=== PATIENT | female | born 1985 | race Caucasian/White ===

== ENCOUNTER 2016-11-13 21:45 | Emergency (ER) | payer SELFPAY ==
[2016-11-13 22:28] VITALS: BP 106/65
[2016-11-13] MEDS ORDERED: MOTRIN PO ONE (22:29)
[2016-11-13 23:31] LABS: Alanine Aminotransferase 19 units/L (7-56); Albumin 3.5 g/dL (3.9-5); Albumin/Globulin Ratio 1.2 %; Alkaline Phosphatase 79 units/L (35-129); Anion Gap 17 mmol/L; BUN/Creatinine Ratio 13.33; Bilirubin,Total 0.5 mg/dL (0.1-1.2); Blood Urea Nitrogen 8 mg/dL (7-17); Calcium 8.7 mg/dL (8.4-10.2); Carbon Dioxide 24 mmol/L (22-30); Chloride 99.3 mmol/L (98-107); Glucose 109 mg/dL (65-100); Lipase 21 units/L (13-60); Potassium 4.1 mmol/L (3.6-5.0); Sodium 136 mmol/L (137-145); Total Protein 6.5 g/dL (6.3-8.2)
[2016-11-13 23:33] LABS: Basophils % (Auto) 0.2 % (0.0-1.8); Eosinophils % (Auto) 0.4 % (0.0-4.3); Hematocrit 38.1 % (30.3-42.9); Hemoglobin 12.8 gm/dl (10.1-14.3); Mean Corpuscular HGB Conc 34 % (30-34); Mean Corpuscular Hemoglobin 31 pg (28-32); Mean Corpuscular Volume 91 fl (79-97); Platelet Count 204 K/mm3 (140-440); Red Blood Count 4.16 M/mm3 (3.65-5.03); Red Cell Distribution Width 13.2 % (13.2-15.2); White Blood Count 9.9 K/mm3 (4.5-11.0)
[2016-11-14 01:11] LABS: Bacteria,Urine 1+ /HPF (Negative); Bilirubin,Urine NEG (Negative); Blood,Urine SM (Negative); Ketones,Urine NEG (Negative); Leukocyte Esterase,Urine TR (Negative); Mucus,Urine FEW /HPF; Nitrite,Urine POS (Negative); Protein,Urine <15 mg/dL mg/dL (Negative); Urobilinogen,Urine < 2.0 mg/dL (<2.0)
== END 2016-11-14 03:59 | disposition left against medical advice (07) ==
LOC: ED 21:45
DX: R05 Cough (principal); R50.9 Fever, unspecified; R10.9 Unspecified abdominal pain; R07.81 Pleurodynia; R51 Headache; R11.0 Nausea; Z53.21 Procedure and treatment not carried out due to patient leaving prior to being seen by health care provider
CPT/HCPCS: 36415; 80053; 81001; 81025; 83690; 85025

== ENCOUNTER 2016-11-14 08:15 | Emergency (ER) | payer SELFPAY ==
[2016-11-14] MEDS ORDERED: TYLENOL PO ONE (08:40)
[2016-11-14] MEDS ORDERED: ROCEPHIN/NS 1 GM/50 ML 1 GM/50 ML BAG IV ONE (08:50)
[2016-11-14] MEDS ORDERED: TORADOL IV ONE (08:50)
[2016-11-14] MEDS ORDERED: NACL 0.9% 1000 ML 1,000 ML IV ONE (08:50)
--- NOTE | 2016-11-14 09:11 | Emergency Department Report ---
ED General Adult HPI - General Chief complaint: Upper Respiratory Infection Stated complaint: FEVER/PAIN Time Seen by Provider: 11/14/16 09:10 Source: patient Mode of arrival: Ambulatory Limitations: Language Barrier - History of Present Illness Initial comments: Patient here complaining in of cough and congestion and flulike symptoms cough is productive of yellow mucus 4 days. She says she has a fever she is also complaining or right lower back pain at her flank since Thursday hurts more when she breathes in. She says she has nausea without any vomiting. She says she has urinary burning and denies any frequency or blood in her urine. Last menstrual period was 11/05/2016. Patient to right flank is 10 out of 10 and aching. Her temperature yesterday was 102 today at 101.4. Given Tylenol in triage area. Denies any history of kidney stones. Patient says she does not have any medical problems. Patient was here yesterday and she had lab work done and her white count is normal urinalysis revealed that she has bacterial infection. MD Complaint: right flank pain and upper respiratory symptoms Onset/Timin -: days(s) Location: back, right Radiation: non-radiation Severity scale (0 -10): 10 Quality: aching Consistency: constant Improves with: rest Worsens with: movement Associated Symptoms: cough, fever/chills, nausea/vomiting. denies: confusion, chest pain, diaphoresis, headaches, loss of appetite, malaise, rash, seizure, shortness of breath, syncope, weakness Treatments Prior to Arrival: NSAID - Related Data Previous Rx's Medication Instructions Recorded Last Taken Type Cefuroxime Axetil [Ceftin] 500 mg PO Q12H #20 tablet 11/14/16 Unknown Rx HYDROcodone/APAP 5-325 [[place] 1 each PO Q6HR PRN #15 tablet 11/14/16 Unknown Rx 5/325] Promethazine [Phenergan TAB] 25 mg PO Q8HR PRN #12 tab 11/14/16 Unknown Rx Allergies Allergy/AdvReac Type Severity Reaction Status Date / Time No Known Allergies Allergy Verified 11/14/16 08:39 ED Review of Systems ROS: Stated complaint: FEVER/PAIN Other details as noted in HPI Comment: All other systems reviewed and negative Constitutional: chills, fever ENT: congestion. denies: ear pain, throat pain Respiratory: cough. denies: shortness of breath, SOB with exertion, SOB at rest , stridor, wheezing Cardiovascular: denies: chest pain, palpitations, edema, syncope Gastrointestinal: nausea. denies: abdominal pain, vomiting, diarrhea, constipation Genitourinary: dysuria. denies: urgency, frequency, hematuria, discharge Musculoskeletal: back pain. denies: arthralgia Skin: denies: rash Neurological: denies: headache, weakness, numbness, paresthesias, confusion, abnormal gait, vertigo ED Past Medical Hx - Past Medical History Previous Medical History?: No - Surgical History Past Surgical History?: Yes Additional Surgical History: x 1 - Family History Family history: no significant - Social History Smoking Status: Current Every Day Smoker Substance Use Type: None - Medications Home Medications: Home Medications Medication Instructions Recorded Confirmed Last Taken Type Cefuroxime Axetil [Ceftin] 500 mg PO Q12H #20 tablet 11/14/16 Unknown Rx HYDROcodone/APAP 5-325 [[place] 1 each PO Q6HR PRN #15 tablet 11/14/16 Unknown Rx 5/325] Promethazine [Phenergan TAB] 25 mg PO Q8HR PRN #12 tab 11/14/16 Unknown Rx ED Physical Exam - General Limitations: Language Barrier General appearance: alert, in no apparent distress - Head Head exam: Present: atraumatic, normocephalic, normal inspection - Eye Eye exam: Present: normal appearance, PERRL, EOMI. Absent: periorbital swelling , periorbital tenderness Pupils: Present: normal accommodation - ENT ENT exam: Present: normal orophraynx, mucous membranes moist, normal external ear exam, other ( Bilateral frontal and maxillary sinuses nontender to palpate. Bilateral nasal mucosa congested with erythema and clear drainage). Absent: normal exam, TM's normal bilaterally (bilateral TMs congested without any erythema) - Neck Neck exam: Present: normal inspection, full ROM. Absent: tenderness, meningismus, lymphadenopathy - Respiratory Respiratory exam: Present: rhonchi (rhonchi to upper lung awan), other ( patient has a congested cough.). Absent: respiratory distress, wheezes, rales, stridor, chest wall tenderness, accessory muscle use, decreased breath sounds, prolonged expiratory - Cardiovascular Cardiovascular Exam: Present: regular rate, normal rhythm, normal heart sounds - GI/Abdominal GI/Abdominal exam: Present: soft, normal bowel sounds. Absent: distended, tenderness, guarding, rebound, rigid - Extremities Exam Extremities exam: Present: normal inspection, full ROM, normal capillary refill. Absent: tenderness, pedal edema, joint swelling, calf tenderness - Back Exam Back exam: Present: normal inspection, full ROM, tenderness, CVA tenderness (R) . Absent: CVA tenderness (L), muscle spasm, paraspinal tenderness, vertebral tenderness, rash noted - Expanded Back Exam Expanded Back exam: Absent: saddle anesthesia Back exam: Negative Straight Leg Raising: Left, Right - Neurological Exam Neurological exam: Present: alert, oriented X3, normal gait, reflexes normal. Absent: motor sensory deficit - Psychiatric Psychiatric exam: Present: normal affect, normal mood - Skin Skin exam: Present: warm, dry, intact, normal color. Absent: rash ED Course Vital Signs 11/14/16 11/14/16 11/14/16 08:28 08:44 10:34 Temperature 101.4 F H 98.6 F Pulse Rate 98 H 82 Respiratory 20 20 16 Rate Blood Pressure 105/65 Blood Pressure 99/54 [Left] O2 Sat by Pulse 99 97 Oximetry - Reevaluation(s) Reevaluation #1: 11/14/16 11:25 Patient stable throughout ED course. She was given Zofran 4 mg IV, Toradol 30 mg IV and 1 L of IV fluid for pyelonephritis. Is also given Rocephin 1 g IV. She tolerated well without any adverse reaction. Patient had lab work done yesterday along with urinalysis in she could not stay still for she eloped. I then is elevated Reevaluation #2: 11/14/16 11:54 Urine cultures sent because urinalysis from yesterday also Urine collected and sent. Patient's vital signs normalized and she is tolerating oral liquids without any difficulties. ED Medical Decision Making - Lab Data Please see lab results from 11/13/2016. Patient with positive urinary tract infection. - Radiology Data Radiology results: report reviewed Chest x-ray revealed no acute cardiopulmonary processes. - Medical Decision Making Collaborated with Dr. hicks and patient presentation, clinical findings, lab findings and treatment plan. ED course: I discussed the patient that she has right kidney infection. Patient has nausea, fever and right flank pain. Her urinalysis from yesterday reveals that she has bacterial infection. Patient is not . White count is not elevated. Urine culture collected and sent today. Patient is stable at present she is given 1 L of normal saline in emergency room with Rocephin 1 g IV. Patient given 975 mg of Tylenol, 30 mg Toradol IV and 4 mg of Zofran IV. He tolerated by mouth liquids without any difficulties. Patient says she felt much better and her vital signs are normalized. Patient will be discharged home with prescription for Ceftin, Te[place]dale and phenergan. Patient instructed that she will need to follow-up with her primary care and 3 days and if she doesn't have one to follow-up with [facility]. Patient was understanding of discharge diagnosis and treatment plan. I instructed her if she develops fever that is not relieved with Tylenol, nausea and vomiting and that is not relieved with Phenergan and increase in flank pain does not removed for Teasdale that she will need to return to the emergency room. Critical care attestation.: If time is entered above; I have spent that time in minutes in the direct care of this critically ill patient, excluding procedure time. ED Disposition Clinical Impression: Pyelonephritis, Acute right flank pain, Fever in adult, Cough, Nausea alone Upper respiratory tract infection Qualifiers: URI type: unspecified URI Qualified Code(s): J06.9 - Acute upper respiratory infection, unspecified Disposition: DISCHARGED TO HOME OR SELFCARE Is pt being admited?: No Does the pt Need Aspirin: No Condition: Stable Instructions: Fever in Adults (ED), Upper Respiratory Infection (ED), Acute Pyelonephritis (ED), Acute Nausea and Vomiting (ED), Flank Pain (ED), Acute Cough (ED) Additional Instructions: Please increase her fluid intake to 2-3 L of fluid per day. Please do not drive or operate heavy machinery while taking [place] Please take nausea medication as prescribed and this medication can cause drowsiness so please do not drive or operate any heavy machinery. If you develop nausea and vomiting that is not relieved with Phenergan, increasing fever, weakness, increasing flank pain that is not relieved by pain medication please return to the emergency room. Follow-up with [facility] in 3 days call today to schedule an appointment. If you have a primary care physician [place] call to schedule an appointment. Prescriptions: Cefuroxime Axetil [Ceftin] 500 mg PO Q12H #20 tablet HYDROcodone/APAP 5-325 [[place] 5/325] 1 each PO Q6HR PRN #15 tablet PRN Reason: Pain Promethazine [Phenergan TAB] 25 mg PO Q8HR PRN #12 tab PRN Reason: Nausea Referrals: PRIMARY CARE, [Primary Care Provider] - 11/17/16 [facility] [Outside] - 11/17/16 Forms: Accompanied Note, Work/School Release Form(ED)
--- NOTE | 2016-11-14 09:14 | XRay Report ---
Chest 2 views: History: Shortness of breath, cough, fever. Findings: Normal cardiomediastinal silhouette the trachea is midline. No consolidation, pneumothorax or pleural effusion. Impression: No acute cardiopulmonary findings
[2016-11-14] MEDS ORDERED: ZOFRAN IV ONE (09:31)
[2016-11-14 10:35] VITALS: BP 99/54
== END 2016-11-14 12:38 | disposition home or self-care (01) ==
LOC: ED 08:15
DX: J06.9 Acute upper respiratory infection, unspecified (principal); N12 Tubulo-interstitial nephritis, not specified as acute or chronic; R10.9 Unspecified abdominal pain; R11.0 Nausea; F17.200 Nicotine dependence, unspecified, uncomplicated
CPT/HCPCS: 71020; 87086; 96365; 96375; 99283; J0696; J1885; J2405; J7030

== ENCOUNTER 2017-10-09 18:25 | Outpatient (CLI) | payer OTHER ==
[2017-10-09 18:44] VITALS: BP 116/60
[2017-10-09] MEDS ORDERED: LACTATED RINGERS 1,000 ML ONE (19:29)
[2017-10-09] MEDS ORDERED: LACTATED RINGERS 1,000 ML IV SCH (20:00)
[2017-10-09 20:03] LABS: Hemoglobin 12.3 gm/dl (10.1-14.3); Mean Corpuscular HGB Conc 33 % (30-34); Mean Corpuscular Hemoglobin 29 pg (28-32); Mean Corpuscular Volume 87 fl (79-97); Platelet Count 212 K/mm3 (140-440); Red Blood Count 4.24 M/mm3 (3.65-5.03); Red Cell Distribution Width 16.1 % (13.2-15.2)
[2017-10-09 20:15] LABS: Bacteria,Urine 3+ /HPF (Negative); Bilirubin,Urine NEG (Negative); Blood,Urine NEG (Negative); Color,Urine Yellow (Yellow); Mucus,Urine FEW /HPF; Nitrite,Urine POS (Negative); Protein,Urine <15 mg/dL mg/dL (Negative); Urobilinogen,Urine < 2.0 mg/dL (<2.0)
== END 2017-10-09 21:50 | disposition home or self-care (01) ==
LOC: TRG 18:25
PROVIDERS: ATTEND Obstetrics & Gynecology
DX: O47.1 False labor at or after 37 completed weeks of gestation (principal); Z3A.38 38 weeks gestation of pregnancy
CPT/HCPCS: 36415; 59025; 81001; 85027; 96360; J7120

== ENCOUNTER 2017-10-19 08:43 | Inpatient (IN) | payer OTHER ==
[2017-10-19] MEDS ORDERED: BICITRA PO NR (09:56)
[2017-10-19] MEDS ORDERED: REGLAN IV ONE (09:56)
[2017-10-19] MEDS ORDERED: PEPCID IV ONE (09:56)
[2017-10-19] MEDS ORDERED: PITOCin/NS 20 UNIT/1000ML DRIP 20 UNITS/1,000 ML BAG IV SCH ×2 (10:00→15:00)
[2017-10-19] MEDS ORDERED: ANCEF/STERILE WATER 2 GM/20 ML 2 GM/20 ML SYRINGE IV NR (10:00)
[2017-10-19] MEDS ORDERED: LACTATED RINGERS 1,000 ML IV SCH (10:00)
--- NOTE | 2017-10-19 10:02 | History and Physical Report ---
History of Present Illness Date of examination: 10/19/17 Date of admission: 10/19/17 08:43 Chief complaint: SIUP at 39 weeks not in labor, previous C/section. History of present illness: Patient is a 32 year old , LMP , EDC 10/26/17 confirmed by first trimester sonogram who is at 39 weeks gestation admitted for elective repeat C/section. She denies any contraction, fluid leakage or bleeding. She reports good movement. tracing is CAT 1. 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 uterus) Social history: no significant social history - Obstetrical History Expected Date of Delivery: 10/26/17 Actual Gestation: 39 Week(s) 0 Day(s) : 2 Para: 1 Spontaneous Abortions: 2 Number of Living Children: 1 Medications and Allergies Allergies Allergy/AdvReac Type Severity Reaction Status Date / Time No Known Allergies Allergy Verified 11/14/16 08:39 Home Medications Medication Instructions Recorded Confirmed Last Taken Type Cefuroxime Axetil [Ceftin] 500 mg PO Q12H #20 tablet 11/14/16 Unknown Rx HYDROcodone/APAP 5-325 [[place] 1 each PO Q6HR PRN #15 tablet 11/14/16 Unknown Rx 5/325] Promethazine [Phenergan TAB] 25 mg PO Q8HR PRN #12 tab 11/14/16 Unknown Rx Active Meds: Active Medications Influenza Virus Vaccine Quadrival (Fluarix Quad [id number](36 Mos+) 0.5 ml IM .ONCE ONE Stop: 10/19/17 09:52 - Vital Signs Vital signs: Vital Signs Pulse BP 83 97/61 10/19/17 09:11 10/19/17 09:11 Temp Pulse Resp BP Pulse Ox 97.2 F L 83 16 97/61 10/19/17 09:18 10/19/17 09:18 10/19/17 09:18 10/19/17 09:18 - Physical Exam Cardiovascular: Normal S1, Normal S2 Lungs: Positive: Clear to auscultation Vulva: both: normal Adnexa: both: normal Deep Tendon Reflex Grade: Normal +2 - Obstetrical FHR: category 1 Uterine Contraction Monitor Mode: External Cervical Dilatation: 1 Cervical Effacement Percentage: 20 station: -2 Uterine Contraction Pattern: Absent Results All other labs normal. Assessment and Plan - Patient Problems (1) 39 weeks gestation of Current Visit: Yes Status: Acute (2) Previous section Current Visit: Yes Status: Acute Plan to address problem: Admit to labor floor. Routine labs. NPO. IV fluid. monitoring. Risks, benefits of the procedure were discussed in detail with the patient such as infection, hemorrhage requiring blood transfusion, injury to the bowel, bladder and blood vessels. She expressed understanding, her questions were answered, she gave her informed consent. Anesthesia has been notified. (3) Declines (vaginal after ) trial Current Visit: Yes Status: Acute
[2017-10-19 10:15] LABS: Basophils % (Auto) 0.5 % (0.0-1.8); Eosinophils # (Auto) 0.1 K/mm3 (0.0-0.4); Eosinophils % (Auto) 0.9 % (0.0-4.3); Hematocrit 36.1 % (30.3-42.9); Hemoglobin 12.1 gm/dl (10.1-14.3); Lymphocytes # (Auto) 1.5 K/mm3 (1.2-5.4); Lymphocytes % (Auto) 18.7 % (13.4-35.0); Mean Corpuscular HGB Conc 34 % (30-34); Mean Corpuscular Hemoglobin 29 pg (28-32); Mean Corpuscular Volume 87 fl (79-97); Monocytes # (Auto) 0.4 K/mm3 (0.0-0.8); Monocytes % (Auto) 5.6 % (0.0-7.3); Platelet Count 222 K/mm3 (140-440); Red Blood Count 4.17 M/mm3 (3.65-5.03); Red Cell Distribution Width 16.2 % (13.2-15.2)
[2017-10-19] MEDS ORDERED: HEMABATE IM ONE (12:28)
[2017-10-19] MEDS ORDERED: METHERGINE IM ONE (12:28)
[2017-10-19] MEDS ORDERED: NEO SYNEPHRINE/NS Syringe(OR USE) IV ONE (13:08)
[2017-10-19] MEDS ORDERED: ZOFRAN ONE (13:12)
[2017-10-19] MEDS ORDERED: NACL 0.9% IR ONE (13:16)
[2017-10-19] MEDS ORDERED: WATER FOR IRRIG STERILE IR ONE (13:16)
--- NOTE | 2017-10-19 13:19 | Anesthesia Consultation ---
Anesthesia Consult and Med Hx Date of service: 10/19/17 - Airway Anesthetic Teeth Evaluation: Good ROM Head & Neck: Adequate Mental/Hyoid Distance: Adequate Mallampati Class: Class II Intubation Access Assessment: Probably Good - Pre-Operative Health Status ASA Pre-Surgery Classification: ASA2 Proposed Anesthetic Plan: Epidural, Spinal - Pulmonary Hx Smoking: Yes (former smoker) Hx Asthma: No COPD: No Hx Pneumonia: No - Cardiovascular System Hx Hypertension: No - Central Nervous System Hx Seizures: No Hx Psychiatric Problems: Yes (bipolar 1) - Endocrine Hx Renal Disease: No Hx End Stage Renal Disease: No Hx Hypothyroidism: No Hx Hyperthyroidism: No - Hematic Hx Anemia: No Hx Sickle Cell Disease: No - Other Systems Hx Alcohol Use: No Hx Obesity: Yes (BMI 38.8)
--- NOTE | 2017-10-19 13:19 | Anesthesia Day of Surgery ---
Anesthesia Day of Surgery - Day of Surgery Patient Examined: Yes Patient H&P Reviewed: Yes Patient is NPO: Yes
[2017-10-19] MEDS ORDERED: BENADRYL IV PRN (13:20)
[2017-10-19] MEDS ORDERED: PHENERGAN PR PRN (13:20)
[2017-10-19] MEDS ORDERED: PHENERGAN PO PRN (13:20)
[2017-10-19] MEDS ORDERED: ZOFRAN IV PRN ×2 (13:20→14:18)
[2017-10-19] MEDS ORDERED: NARCAN 0.4 MG/1 ML IV PRN ×2 (13:20→14:18)
[2017-10-19] MEDS ORDERED: DILAUDID IV PRN (13:20)
[2017-10-19] MEDS ORDERED: TORADOL IV PRN ×3 (13:21→14:18)
[2017-10-19] MEDS ORDERED: LACTATED RINGERS 1,000 ML ONE (13:21)
[2017-10-19] MEDS ORDERED: ePHEDrine SULFATE ONE (13:25)
[2017-10-19] MEDS ORDERED: WATER FOR INJ (PF) 10 ML ONE (13:27)
[2017-10-19] MEDS ORDERED: ASTRAMORPH PF 10MG/10ML ONE (13:45)
[2017-10-19] MEDS ORDERED: DIPRIVAN 10 MG/ML IV ONE (14:00)
[2017-10-19] MEDS ORDERED: SODIUM CHLORIDE FLUSH SYRINGE 10 ML IV NR ×2 (14:00→15:00)
--- NOTE | 2017-10-19 14:15 | Post Anesthesia Evaluation ---
- Post Anesthesia Evaluation Patient Participated: Yes Airway Patent: Yes Stable Respiratory Function: Yes Nausea/Vomiting: No Temp > 96.8F: Yes Pain Manageable: Yes Adequeate Hydration: Yes Anesthesia Complications: No Block Receding Appropriately: Yes Patient on Ventilator: No
[2017-10-19] MEDS ORDERED: MILK OF MAGNESIA PO PRN (14:18)
[2017-10-19] MEDS ORDERED: TYLENOL PO PRN (14:18)
[2017-10-19] MEDS ORDERED: MORPHINE IV PRN ×3 (14:18→14:32)
[2017-10-19] MEDS ORDERED: LANSINOH TP PRN (14:18)
[2017-10-19] MEDS ORDERED: TUCKS PAD TP PRN (14:18)
[2017-10-19] MEDS ORDERED: SENOKOT PO PRN (14:18)
--- NOTE | 2017-10-19 14:36 | Operative Report ---
Operative Report Operative Report: Preoperative diagnosis: 1. SIUP at 39 weeks gestation not in labor. 2 Previous section. 3. Refused . Postoperative diagnosis: 1. Same as preoperative diagnosis. 2 Dense adhesions of the omentum to the anterior uterine segment and parietal peritoneum. Procedure: 1. Repeat low transverse section. 2. Lysis of omental adhesions from the parietal peritoneum and uterus. Surgeon: Dr. Blanton Athletic Agent: none Anesthesia: spinal EBL: 1000 cc IVF: 1100 cc Urine: 150 c clear Complications: none Intraoperative findings: 1. Dense adhesions of the omentum to the anterior uterine segment and parietal peritoneum. 2. Female found in an YURIDIA position, delivered at 1:36 PM, Apgars 8 at 1 minutes and 9 at 5 minutes, weight 7 pounds. 3. Normal fallopian tubes and ovaries bilaterally. Procedure details: Risks, benefits, and alternatives of the procedure were discussed in detail with the patient which included but not limited to the risk of infection, hemorrhage requiring blood transfusion, and injury to the bowel or bladder and blood vessels. The patient expressed understanding, her questions were answered , and she gave informed consent. The patient was taken to the operating room with an IV fluid infusion Ringer's lactate. In the operating room, she was placed in a sitting position and given spinal anesthesia. Then, she was placed in the dorsal supine position with a leftward tilt. Betts catheter wall and Venodyne boots were placed. The abdomen was washed and she was prepared and draped in usual sterile fashion. After assuring adequate spinal anesthesia, the Pfannenstiel skin incision was made in the lower uterine segment using the scalpel. This incision was carried down to the underlying fascia using the Bovie. The fascia was opened bilaterally in a curvilinear fashion using the Bovie. 2 straight Kocker clamps were used to grasp the upper edge of the fascia from which the underlying rectus abdominis muscle was dissected off using the Bovie. A similar procedure was done with the lower edge of the fascia to dissect the underlying rectus abdominis muscle. The muscle was bluntly from the midline by pulling. The parietal peritoneum was entered sharply using Metzenbaum scissors. There was dense adhesions of the omentum to the anterior parietal peritoneum and anterior uterine segment. Lysis of adhesion was done until the bladder was exposed. A bladder flap was created. Alesix'O retractor was placed at the incision for proper visualization. A low transverse incision was made in the lower uterine segment using the scalpel and extended bilaterally in a curvilinear fashion using bandage scissors. The amniotic sac was ruptured and was copious amount of clear amniotic fluid. The infant was found in an YURIDIA position, the head was delivered atraumatically followed by the delivery of the shoulders and the rest of the body at 1:36 PM. The cord was clamped 2 and cut , the was handed off to the waiting drafter electromechanical. The infant was a female, Apgars were 8 at 1 minutes and 9 at 5 minutes, weight 7 pounds. Cord blood was collected. The placenta was delivered manually and it was complete with a three-vessel cord. The uterine incision was repaired in a running locked fashion using 0 Vicryl sutures. The second layer of imbrication was placed. The gutters were cleaned of clots and debris using dry lap sponges. After assuring adequate hemostasis, the instruments were removed from the abdominal cavity. The fascia was closed in a running fashion using 0 Vicryl sutures. The skin was closed with xiomara. The counts of laps, needles, sponges, and instruments were correct 2. The patient tolerated the procedure well. She was taken to the recovery room in a stable condition.
[2017-10-19 19:50] LABS: Basophils % (Auto) 0.3 % (0.0-1.8); Hemoglobin 11.6 gm/dl (10.1-14.3); Lymphocytes # (Auto) 1.6 K/mm3 (1.2-5.4); Lymphocytes % (Auto) 14.4 % (13.4-35.0); Mean Corpuscular HGB Conc 33 % (30-34); Mean Corpuscular Hemoglobin 29 pg (28-32); Mean Corpuscular Volume 87 fl (79-97); Monocytes # (Auto) 0.8 K/mm3 (0.0-0.8); Monocytes % (Auto) 6.8 % (0.0-7.3); Platelet Count 217 K/mm3 (140-440); Red Blood Count 4.01 M/mm3 (3.65-5.03); Red Cell Distribution Width 16.3 % (13.2-15.2)
[2017-10-20 05:03] LABS: Hematocrit 31.8 % (30.3-42.9); Hemoglobin 10.8 gm/dl (10.1-14.3)
[2017-10-20] MEDS ORDERED: BOOSTRIX IM ONE (06:00)
--- NOTE | 2017-10-20 10:17 | Progress Note ---
Assessment and Plan POD#1 S/P Repeat section Pain well controlled PO meds Ambulating, voiding, tolerating clear liquids Stable P: Continue Routine PO/PP care Encouraged ambulation in room consult Advance diet as tolerated Abdominal Binder Subjective - Subjective Date of service: 10/20/17 Principal diagnosis: S/P repeat section Patient reports: appetite normal, voiding normally, pain well controlled, ambulating normally : nursing well Objective - Vital Signs Latest vital signs: Vital Signs Temp Pulse Resp BP BP Pulse Ox 10/20/17 07:57 99.0 F 78 18 97/51 94 10/20/17 04:10 98.6 F 76 113/61 10/20/17 00:00 98.2 F 68 18 102/60 10/19/17 20:40 97.6 F 66 103/53 10/19/17 15:47 97.8 F 61 18 104/69 100 10/19/17 15:25 49 L 15 116/68 99 10/19/17 15:24 97.4 F L 10/19/17 15:20 60 20 121/67 97 10/19/17 15:15 55 L 18 119/68 97 10/19/17 15:10 52 L 17 116/70 98 10/19/17 15:05 76 18 121/71 97 10/19/17 15:00 59 L 20 118/64 98 10/19/17 14:55 56 L 20 121/67 99 10/19/17 14:50 65 10 L 118/64 100 10/19/17 14:45 59 L 20 118/64 98 10/19/17 14:40 63 13 117/64 99 10/19/17 14:35 58 L 12 113/71 99 10/19/17 14:30 65 13 123/61 99 10/19/17 14:26 73 13 98 10/19/17 14:24 98 10/19/17 11:10 65 92/58 Intake and Output 10/19/17 10/20/17 10/20/17 23:59 07:59 15:59 Intake Total 240 Output Total 600 500 Balance -360 -500 Intake: Oral 240 Output: Urine 600 500 Indwelling Catheter 600 Void 500 Other: Total, Intake Amount 240 Total, Output Amount 400 500 - Exam Breasts: Present: normal, Cardiovascular: Present: Regular rate, Normal S1, Normal S2 Lungs: Present: Clear to auscultation, Normal air movement Abdomen: Present: normal appearance, soft, tenderness (as expected), normal bowel sounds Vulva: both: normal Uterus: Present: firm, fundal height below umbilicus (-1) Extremities: Present: normal. Absent: tenderness Deep Tendon Reflex Grade: Normal +2 Incision: Present: normal, dry, intact, dressed (No drainage) - Labs Labs: Abnormal lab results 10/19/17 10/19/17 Range/Units 10:00 19:36 WBC 11.4 H (4.5-11.0) K/mm3 RDW 16.2 H 16.3 H (13.2-15.2) % Seg Neutrophils % 74.3 H 78.5 H (40.0-70.0) % Seg Neutrophils # 8.9 H (1.8-7.7) K/mm3
[2017-10-20] MEDS: PRENATAL VITAMIN PO SCH (11:12)
[2017-10-20] MEDS ORDERED: Fluarix Quad 2017-2018(36 MOS+ IM ONE (12:00)
[2017-10-20] MEDS: MOTRIN PO PRN ×2 (12:06→17:13)
[2017-10-20] MEDS: MYLICON PO PRN (22:02)
[2017-10-21] MEDS: MOTRIN PO PRN ×3 (00:07→12:01)
[2017-10-21 04:16] VITALS: BP 99/58
[2017-10-21] MEDS: MYLICON PO PRN (05:36)
--- NOTE | 2017-10-21 10:28 | Progress Note ---
Assessment and Plan A: POD #2 Stable P: Follow Routine PostOp Orders D/C Home today RTO in 1 Week Subjective - Subjective Date of service: 10/21/17 Principal diagnosis: S/P repeat section Patient reports: appetite normal, voiding normally, pain well controlled, flatus , ambulating normally [place]: doing well, bottle feeding Objective - Vital Signs Latest vital signs: Vital Signs Temp Pulse Resp BP BP Pulse Ox 10/21/17 06:36 16 10/21/17 05:37 18 10/21/17 01:07 16 10/21/17 00:40 97.3 F L 78 20 99/58 97 10/21/17 00:07 20 10/20/17 16:00 98.5 F 84 18 110/64 99 10/20/17 11:33 98.8 F 83 18 90/47 95 Intake and Output 10/20/17 10/21/17 10/21/17 22:59 06:59 14:59 Intake Total 480 120 Output Total 500 Balance -20 120 Intake: Oral 480 120 Output: Urine 500 Void 500 Other: Total, Intake Amount 120 120 Total, Output Amount 500 # Voids Void 1 - Exam Breasts: Present: normal Cardiovascular: Present: Regular rate Lungs: Present: Clear to auscultation, Normal air movement Abdomen: Present: normal appearance, soft, normal bowel sounds Uterus: Present: normal, firm, fundal height below umbilicus Extremities: Present: normal Incision: Present: normal, dry, intact
--- NOTE | 2017-10-21 10:30 | Discharge Summary ---
Providers - Providers Date of Admission: 10/19/17 08:43 Date of discharge: 10/21/17 Attending physician: GINGER SINGH MD Primary care physician: GINGER SINGH MD Hospitalization Reason for admission: section Delivery: Procedure: repeat low transverse Episiotomy: none Laceration: none Incision: normal, dry, intact Other procedures: none complications: none Discharge diagnosis: IUP at term delivered [place] baby: female Condition at discharge: Good Disposition: DC-01 TO HOME OR SELFCARE Plan - Provider Discharge Summary Activity: routine, no sex for 6 weeks, no heavy lifting 4 weeks, no strenuous exercise Diet: routine Instructions: routine Additional instructions: [] Smoking cessation referral if applicable(refer to patient education folder for contact #) [] Refer to [facility] Booklet Call your doctor immediately for: * Fever > 100.5 * Heavy vaginal bleeding ( >1 pad per hour) * Severe persistent headache * Shortness of breath * Reddened, hot, painful area to leg or breast * Drainage or odor from incision. * Keep incision clean and dry at all times and follow doctor's instructions regarding bathing/showering - Follow up plan Follow up: GINGER SINGH MD [Primary Care Provider] - 7 Days
[2017-10-21] MEDS: PRENATAL VITAMIN PO SCH (12:01)
== END 2017-10-21 16:08 | disposition home or self-care (01) | DRG 766 ==
LOC: APU 08:43 → OB 15:42
PROVIDERS: ADMIT Obstetrics & Gynecology; ATTEND Obstetrics & Gynecology
PROC: 10D00Z1 Extraction of Products of Conception, Low, Open Approach (ICD-10-PCS; principal; 2017-10-19)
PROC: 3E0234Z Introduction of Serum, Toxoid and Vaccine into Muscle, Percutaneous Approach (ICD-10-PCS; 2017-10-20)
DX: O34.211 Maternal care for low transverse scar from previous cesarean delivery (principal); Z3A.39 39 weeks gestation of pregnancy; Z37.0 Single live birth; Z23 Encounter for immunization; O99.344 Other mental disorders complicating childbirth; F31.9 Bipolar disorder, unspecified; Z87.891 Personal history of nicotine dependence
CPT/HCPCS: 36415; 85014; 85018; 85025; 86850; 86900; 86901; 90686; 90715; 99211; A6250; G0463; J0690; J1200; J2210; J2274; J2370; J2405; J2590; J2704; J2765; J7120; Q0169

== ENCOUNTER 2018-01-20 08:24 | Emergency (ER) | payer SELFPAY ==
[2018-01-20 09:32] LABS: Hematocrit 36.4 % (30.3-42.9); Hemoglobin 12.5 gm/dl (10.1-14.3); Mean Corpuscular HGB Conc 35 % (30-34); Mean Corpuscular Hemoglobin 29 pg (28-32); Mean Corpuscular Volume 84 fl (79-97); Platelet Count 212 K/mm3 (140-440); Red Blood Count 4.33 M/mm3 (3.65-5.03)
[2018-01-20 09:50] LABS: Alanine Aminotransferase 17 units/L (7-56); Albumin 3.8 g/dL (3.9-5); BUN/Creatinine Ratio 25; Blood Urea Nitrogen 15 mg/dL (7-17); Calcium 8.5 mg/dL (8.4-10.2); Hemolysis Index 0; Lipase 19 units/L (13-60)
[2018-01-20 10:24] LABS: Bilirubin,Urine NEG (Negative); Blood,Urine MOD (Negative); Urobilinogen,Urine < 2.0 mg/dL (<2.0)
[2018-01-20 11:00] LABS: Anisocytosis 1+; Basophils % (Manual) 0 % (0.0-1.8); Platelet Estimate Consistent w Auto; Total Cells Counted 100
[2018-01-20 12:56] LABS: HCG Qualitative,Urine Negative (Negative)
[2018-01-20 13:25] LABS: Color,Urine Yellow (Yellow)
--- NOTE | 2018-01-20 13:29 | Emergency Department Report ---
ED N/V/D HPI - General Chief complaint: Abdominal Pain Stated complaint: DIARRHEA/VOMITING/FEVER Time Seen by Provider: 01/20/18 13:11 Source: patient, family Mode of arrival: Ambulatory Limitations: No Limitations - History of Present Illness Initial comments: 32-year-old female with past surgical history of 2 presents to the hospital complains of nausea, vomiting, and diarrhea for 4 days. Patient has been taken Pepto-Bismol with no significant relief. She has taken Pepto-Bismol stool has turned black with bloody since 1 AM. Patient reports that she had a lot of bright red blood per rectum with bowel movement at 1 AM by subsequently she had some blood in her stool but it is decreased. She complains of generalized crampy mild abdominal pain. Low-grade fever reported. Patient denies hematemesis or coffee ground emesis. No recent international travel or known sick contacts. She continues to have significant diarrhea with any by mouth intake - Related Data Previous Rx's Medication Instructions Recorded Last Taken Type Cefuroxime Axetil [Ceftin] 500 mg PO Q12H #20 tablet 11/14/16 Unknown Rx HYDROcodone/APAP 5-325 [[place] 1 each PO Q6HR PRN #15 tablet 11/14/16 Unknown Rx 5/325] Ibuprofen [Motrin] 800 mg PO Q8HR PRN #20 tablet 10/21/17 Unknown Rx oxyCODONE /ACETAMINOPHEN [Percocet 1 tab PO Q6HR PRN #20 tablet 10/21/17 Unknown Rx 5/325] Ciprofloxacin HCl [Cipro] 500 mg PO BID #10 tablet 01/20/18 Unknown Rx Loperamide [Imodium] 2 mg PO Q2HR PRN #20 capsule 01/20/18 Unknown Rx Promethazine [Phenergan TAB] 25 mg PO Q8HR PRN #20 tab 01/20/18 Unknown Rx Allergies Allergy/AdvReac Type Severity Reaction Status Date / Time No Known Allergies Allergy Verified 11/14/16 08:39 ED Review of Systems ROS: Stated complaint: DIARRHEA/VOMITING/FEVER Other details as noted in HPI Comment: All other systems reviewed and negative ED Past Medical Hx - Past Medical History Previous Medical History?: Yes Hx Hypertension: No Hx Congestive Heart Failure: No Hx Diabetes: No Hx Deep Vein Thrombosis: No Hx Renal Disease: No Hx Sickle Cell Disease: No Hx Seizures: No Hx Asthma: No Hx COPD: No Hx HIV: No - Surgical History Past Surgical History?: Yes Additional Surgical History: x 2 - Social History Smoking Status: Current Every Day Smoker Substance Use Type: Prescribed - Medications Home Medications: Home Medications Medication Instructions Recorded Confirmed Last Taken Type Cefuroxime Axetil [Ceftin] 500 mg PO Q12H #20 tablet 11/14/16 10/19/17 Unknown Rx HYDROcodone/APAP 5-325 [[place] 1 each PO Q6HR PRN #15 tablet 11/14/16 10/19/17 Unknown Rx 5/325] Ibuprofen [Motrin] 800 mg PO Q8HR PRN #20 tablet 10/21/17 Unknown Rx oxyCODONE /ACETAMINOPHEN [Percocet 1 tab PO Q6HR PRN #20 tablet 10/21/17 Unknown Rx 5/325] Ciprofloxacin HCl [Cipro] 500 mg PO BID #10 tablet 01/20/18 Unknown Rx Loperamide [Imodium] 2 mg PO Q2HR PRN #20 capsule 01/20/18 Unknown Rx Promethazine [Phenergan TAB] 25 mg PO Q8HR PRN #20 tab 01/20/18 Unknown Rx ED Physical Exam - General Limitations: No Limitations - Other Other exam information: General: No limitations, patient is alert in no acute distress Head exam: Atraumatic, normocephalic Eyes exam: Normal appearance ENT: Moist mucous membrane, normal oropharynx Neck exam: Normal inspection, full range of motion, no meningismus nontender Respiratory exam: Clear to auscultation bilateral, no wheezes, rales, crackles Cardiovascular: Normal rate and rhythm, normal heart sounds Abdomen: Soft, nondistended, suprapubic tenderness, with normal bowel sounds, no rebound, or guarding Rectal: No stool obtained. No melena or hematochezia. No external hemorrhoids. Faint guaiac positive Extremity: Full range of motion normal inspection no deformity Back: Normal Inspection, full range of motion, no tenderness Neurologic: Alert, oriented x3, cranial nerves intact, no motor or sensory deficit Psychiatric: normal affect, normal mood Skin: Warm, dry, intact ED Course Vital Signs 01/20/18 08:56 Temperature 99 F Pulse Rate 98 H Respiratory 18 Rate Blood Pressure 152/72 O2 Sat by Pulse 97 Oximetry ED Medical Decision Making - Lab Data Result diagrams: 01/20/18 09:16 01/20/18 09:16 Lab Results 01/20/18 01/20/18 01/20/18 Range/Units 09:16 09:16 09:49 WBC 7.2 (4.5-11.0) K/mm3 RBC 4.33 (3.65-5.03) M/mm3 Hgb 12.5 (10.1-14.3) gm/dl Hct 36.4 (30.3-42.9) % MCV 84 (79-97) fl MCH 29 (28-32) pg MCHC 35 H (30-34) % RDW 15.0 (13.2-15.2) % Plt Count 212 (140-440) K/mm3 [place] % (Auto) Human Resources Training Manager Add Manual Diff Complete Total Counted 100 Seg Neuts % (Manual) 51.0 (40.0-70.0) % Band Neutrophils % 14.0 % Lymphocytes % (Manual) 18.0 (13.4-35.0) % Reactive Lymphs % (Man) 0 % Monocytes % (Manual) 16.0 H (0.0-7.3) % Eosinophils % (Manual) 1.0 (0.0-4.3) % Basophils % (Manual) 0 (0.0-1.8) % Metamyelocytes % 0 % Myelocytes % 0 % Promyelocytes % 0 % Blast Cells % 0 % Nucleated RBC % Not Reportable Seg Neutrophils # Man 3.7 (1.8-7.7) K/mm3 Band Neutrophils # 1.0 K/mm3 Lymphocytes # (Manual) 1.3 (1.2-5.4) K/mm3 Abs React Lymphs (Man) 0.0 K/mm3 Monocytes # (Manual) 1.2 H (0.0-0.8) K/mm3 Eosinophils # (Manual) 0.1 (0.0-0.4) K/mm3 Basophils # (Manual) 0.0 (0.0-0.1) K/mm3 Metamyelocytes # 0.0 K/mm3 Myelocytes # 0.0 K/mm3 Promyelocytes # 0.0 K/mm3 Blast Cells # 0.0 K/mm3 WBC Morphology Not Reportable Hypersegmented Neuts Not Reportable Hyposegmented Neuts Not Reportable Hypogranular Neuts Not Reportable Smudge Cells Not Reportable Toxic Granulation Not Reportable Toxic Vacuolation Not Reportable Dohle Bodies Not Reportable Pelger-Huet Anomaly Not Reportable Salvatore Rods Not Reportable Platelet Estimate Consistent w auto Clumped Platelets Not Reportable Plt Clumps, EDTA Not Reportable Large Platelets Not Reportable Giant Platelets Not Reportable Platelet Satelliting Not Reportable Plt Morphology Comment Not Reportable RBC Morphology Not Reportable Dimorphic RBCs Not Reportable Polychromasia Not Reportable Hypochromasia Not Reportable Poikilocytosis Not Reportable Anisocytosis 1+ Microcytosis Not Reportable Macrocytosis Not Reportable Spherocytes Not Reportable Pappenheimer Bodies Not Reportable Sickle Cells Not Reportable Target Cells Not Reportable Tear Drop Cells Not Reportable Ovalocytes Not Reportable Helmet Cells Not Reportable Mckeon-Luquillo Bodies Not Reportable [place] Rings Not Reportable [place] Cells Not Reportable Bite Cells Not Reportable Crenated Cell Not Reportable Elliptocytes Not Reportable Acanthocytes (Spur) Not Reportable Rouleaux Not Reportable Hemoglobin C Crystals Not Reportable Schistocytes Not Reportable Malaria parasites Not Reportable Raf Bodies Not Reportable Hem Pathologist Commnt No Sodium 139 (137-145) mmol/L Potassium 3.6 (3.6-5.0) mmol/L Chloride 100.1 (98-107) mmol/L Carbon Dioxide 26 (22-30) mmol/L Anion Gap 17 mmol/L BUN 15 (7-17) mg/dL Creatinine 0.6 L (0.7-1.2) mg/dL Estimated GFR > 60 ml/min BUN/Creatinine Ratio 25 % Glucose 99 (65-100) mg/dL Calcium 8.5 (8.4-10.2) mg/dL Total Bilirubin 0.40 (0.1-1.2) mg/dL AST 19 (5-40) units/L ALT 17 (7-56) units/L Alkaline Phosphatase 108 (35-129) units/L Total Protein 6.8 (6.3-8.2) g/dL Albumin 3.8 L (3.9-5) g/dL Albumin/Globulin Ratio 1.3 % Lipase 19 (13-60) units/L Urine Color Yellow (Yellow) Urine Turbidity Clear (Clear) Urine pH 7.0 (5.0-7.0) Ur Specific [place] 1.017 (1.003-1.030) Urine Protein 100 mg/dl (Negative) mg/dL Urine Glucose (UA) Neg (Negative) mg/dL Urine Ketones Neg (Negative) mg/dL Urine Blood Mod (Negative) Urine Nitrite Neg (Negative) Urine Bilirubin Neg (Negative) Urine Urobilinogen < 2.0 (<2.0) mg/dL Ur Leukocyte Esterase Sm (Negative) Urine WBC (Auto) 16.0 H (0.0-6.0) /HPF Urine RBC (Auto) 24.0 (0.0-6.0) /HPF Urine HCG, Qual (Negative) 01/20/18 Range/Units 09:49 WBC (4.5-11.0) K/mm3 RBC (3.65-5.03) M/mm3 Hgb (10.1-14.3) gm/dl Hct (30.3-42.9) % MCV (79-97) fl MCH (28-32) pg MCHC (30-34) % RDW (13.2-15.2) % Plt Count (140-440) K/mm3 [place] % (Auto) Add Manual Diff Total Counted Seg Neuts % (Manual) (40.0-70.0) % Band Neutrophils % % Lymphocytes % (Manual) (13.4-35.0) % Reactive Lymphs % (Man) % Monocytes % (Manual) (0.0-7.3) % Eosinophils % (Manual) (0.0-4.3) % Basophils % (Manual) (0.0-1.8) % Metamyelocytes % % Myelocytes % % Promyelocytes % % Blast Cells % % Nucleated RBC % Seg Neutrophils # Man (1.8-7.7) K/mm3 Band Neutrophils # K/mm3 Lymphocytes # (Manual) (1.2-5.4) K/mm3 Abs React Lymphs (Man) K/mm3 Monocytes # (Manual) (0.0-0.8) K/mm3 Eosinophils # (Manual) (0.0-0.4) K/mm3 Basophils # (Manual) (0.0-0.1) K/mm3 Metamyelocytes # K/mm3 Myelocytes # K/mm3 Promyelocytes # K/mm3 Blast Cells # K/mm3 WBC Morphology Hypersegmented Neuts Hyposegmented Neuts Hypogranular Neuts Smudge Cells Toxic Granulation Toxic Vacuolation Dohle Bodies Pelger-Huet Anomaly Salvatore Rods Platelet Estimate Clumped Platelets Plt Clumps, EDTA Large Platelets Giant Platelets Platelet Satelliting Plt Morphology Comment RBC Morphology Dimorphic RBCs Polychromasia Hypochromasia Poikilocytosis Anisocytosis Microcytosis Macrocytosis Spherocytes Pappenheimer Bodies Sickle Cells Target Cells Tear Drop Cells Ovalocytes Helmet Cells Mckeon-Luquillo Bodies Citronelle Rings [place] Cells Bite Cells Crenated Cell Elliptocytes Acanthocytes (Spur) Rouleaux Hemoglobin C Crystals Schistocytes Malaria parasites Raf Bodies Hem Pathologist Commnt Sodium (137-145) mmol/L Potassium (3.6-5.0) mmol/L Chloride (98-107) mmol/L Carbon Dioxide (22-30) mmol/L Anion Gap mmol/L BUN (7-17) mg/dL Creatinine (0.7-1.2) mg/dL Estimated GFR ml/min BUN/Creatinine Ratio % Glucose (65-100) mg/dL Calcium (8.4-10.2) mg/dL Total Bilirubin (0.1-1.2) mg/dL AST (5-40) units/L ALT (7-56) units/L Alkaline Phosphatase (35-129) units/L Total Protein (6.3-8.2) g/dL Albumin (3.9-5) g/dL Albumin/Globulin Ratio % Lipase (13-60) units/L Urine Color (Yellow) Urine Turbidity (Clear) Urine pH (5.0-7.0) Ur Specific [place] (1.003-1.030) Urine Protein (Negative) mg/dL Urine Glucose (UA) (Negative) mg/dL Urine Ketones (Negative) mg/dL Urine Blood (Negative) Urine Nitrite (Negative) Urine Bilirubin (Negative) Urine Urobilinogen (<2.0) mg/dL Ur Leukocyte Esterase (Negative) Urine WBC (Auto) (0.0-6.0) /HPF Urine RBC (Auto) (0.0-6.0) /HPF Urine HCG, Qual Negative (Negative) - Medical Decision Making Gastroenteritis Likely viral but will cover with antibiotic that covers UTI as well. h/h stable no leukocytosis symptomatic tx will be provided stable for d/c and f/u (tolerating po) - Differential Diagnosis infectious gastroenteritis, viral gastroenteritis, diverticulitis, GI bleed Critical Care Time: No Critical care attestation.: If time is entered above; I have spent that time in minutes in the direct care of this critically ill patient, excluding procedure time. ED Disposition Clinical Impression: Acute gastroenteritis, Urine WBC increased, Rectal bleeding Disposition: TO HOME OR SELFCARE Is pt being admited?: No Does the pt Need Aspirin: No Condition: Stable Instructions: Gastroenteritis (ED), Urinary Tract Infection in Women (ED), Rectal Bleeding (ED) Additional Instructions: Taken medication as prescribed. Return if symptoms worsen. Follow with the resources provided or with the doctor of your choice Prescriptions: Ciprofloxacin HCl [Cipro] 500 mg PO BID #10 tablet Loperamide [Imodium] 2 mg PO Q2HR PRN #20 capsule PRN Reason: Diarrhea Promethazine [Phenergan TAB] 25 mg PO Q8HR PRN #20 tab PRN Reason: Nausea Referrals: WILMA HOWARD MD [Staff Physician] - 3-5 Days [facility] [Provider Group] - 3-5 Days [facility] [Provider Group] - 3-5 Days Time of Disposition: 13:41 Print Language: CYPRIOT
[2018-01-20] MEDS ORDERED: LEVAQUIN PO ONE (14:21)
[2018-01-20] MEDS ORDERED: TYLENOL PO ONE (14:21)
[2018-01-20] MEDS ORDERED: TYLENOL ONE (14:21)
[2018-01-20] MEDS ORDERED: LEVAQUIN ONE (14:21)
[2018-01-20 14:28] VITALS: BP 110/71
== END 2018-01-20 14:30 | disposition home or self-care (01) ==
LOC: ED 08:24
DX: K52.9 Noninfective gastroenteritis and colitis, unspecified (principal); D72.829 Elevated white blood cell count, unspecified; K62.5 Hemorrhage of anus and rectum; F17.200 Nicotine dependence, unspecified, uncomplicated
CPT/HCPCS: 36415; 80053; 81001; 81025; 82271; 83690; 85007; 85025; 99283

== ENCOUNTER 2021-08-07 15:40 | Emergency (ER) | payer SELFPAY ==
[2021-08-07] MEDS ORDERED: MORPHINE 4 MG/1 ML INJ IV ONE (18:03)
[2021-08-07] MEDS ORDERED: ONDANSETRON 4 MG/2 ML INJ IV ONE (18:03)
--- NOTE | 2021-08-07 18:06 | Event Note ---
ED Screening Note Date of service: 08/07/21 Time: 18:05 ED Screening Note: 36-year-old female patient presents with complaints of right flank pain, right upper abdominal pain, and right lower abdominal pain x5 days. She reports the pain seemed to begin in her back and quickly moved into her abdomen the same day. She denies any dysuria/hematuria/urinary frequency, vaginal bleeding/discharge, fever/chills/sweats, chest pain, shortness of breath, or history of kidney stones. She reports she has had 3 episodes of pyelonephritis in the past. No injuries to her back per patient. On exam patient has right CVA tenderness and tenderness to palpation of the right lower lumbar along with right upper quadrant and right lower quadrant tenderness to palpation This initial assessment/diagnostic orders/clinical plan/treatment(s) is/are subject to change based on patients health status, clinical progression and re- assessment by fellow clinical providers in the ED. Further treatment and workup at subsequent clinical providers discretion. Patient/guardian urged not to elope from the ED as their condition may be serious if not clinically assessed and managed. Initial orders include: CT abdomen and pelvis Labs
[2021-08-07 18:44] LABS: Bilirubin,Urine NEG (Negative); Blood,Urine NEG (Negative); Color,Urine Yellow (Yellow); Mucus,Urine FEW /HPF; Protein,Urine <15 mg/dL mg/dL (Negative); RBC,Urine < 1.0 /HPF (0.0-6.0)
[2021-08-07 19:08] LABS: Alanine Aminotransferase 12 units/L (7-56); Albumin 4.1 g/dL (3.9-5); BUN/Creatinine Ratio 30; Blood Urea Nitrogen 12 mg/dL (7-17); Calcium 9.7 mg/dL (8.4-10.2); Hemolysis Index 50
[2021-08-07 19:27] LABS: Basophils # (Auto) 0.1 K/mm3 (0.0-0.1); Basophils % (Auto) 1.2 % (0.0-1.8); Eosinophils # (Auto) 0.1 K/mm3 (0.0-0.4); Hematocrit 40.8 % (30.3-42.9); Hemoglobin 13.2 gm/dl (10.1-14.3); Lymphocytes # (Auto) 2.6 K/mm3 (1.2-5.4); Lymphocytes % (Auto) 30.2 % (13.4-35.0); Mean Corpuscular HGB Conc 32 % (30-34); Mean Corpuscular Volume 89 fl (79-97); Monocytes # (Auto) 0.6 K/mm3 (0.0-0.8); Monocytes % (Auto) 6.7 % (0.0-7.3); Platelet Count 269 K/mm3 (140-440); Red Blood Count 4.58 M/mm3 (3.65-5.03); Red Cell Distribution Width 14.2 % (13.2-15.2)
--- NOTE | 2021-08-07 20:23 | Emergency Department Report ---
ED Back Pain/Injury HPI - General Chief Complaint: Back Pain/Injury Stated Complaint: BACK PAIN Time Seen by Provider: 08/07/21 17:46 Source: patient Limitations: No Limitations - History of Present Illness Initial Comments: Patient presents with back pain. This was nontraumatic in nature. It is in the right hip area and radiates into the right lower abdomen. Sometimes it radiates down the right leg. She has no fevers or chills per there is no cough or congestion. Has no numbness or tingling in the arms or legs. Patient was seen earlier and labs were ordered. I have reviewed these labs. Patient states that she is here primarily because the pain in her back. - Related Data Previous Rx's Medication Instructions Recorded Last Taken Type Cefuroxime Axetil [Ceftin] 500 mg PO Q12H #20 tablet 11/14/16 Unknown Rx HYDROcodone/APAP 5-325 [[place] 1 each PO Q6HR PRN #15 tablet 11/14/16 Unknown Rx 5/325] oxyCODONE /ACETAMINOPHEN [Percocet 1 tab PO Q6HR PRN #20 tablet 10/21/17 Unknown Rx 5/325] Ciprofloxacin HCl [Cipro] 500 mg PO BID #10 tablet 01/20/18 Unknown Rx Loperamide [Imodium] 2 mg PO Q2HR PRN #20 capsule 01/20/18 Unknown Rx Promethazine [Phenergan] 25 mg PO Q8HR PRN #20 tab 01/20/18 Unknown Rx Ibuprofen [Motrin 800 MG tab] 800 mg PO Q8HR PRN #20 tablet 08/07/21 Unknown Rx Lidocaine [Lidoderm] 1 each TP DAILY #30 adh..patch 08/07/21 Unknown Rx Metaxalone [Skelaxin] 800 mg PO TID #9 tablet 08/07/21 Unknown Rx Allergies Allergy/AdvReac Type Severity Reaction Status Date / Time No Known Allergies Allergy Verified 11/14/16 08:39 ED Review of Systems ROS: Stated complaint: BACK PAIN Other details as noted in HPI Comment: All other systems reviewed and negative Constitutional: denies: fever Eyes: denies: eye pain ENT: denies: throat pain Respiratory: denies: cough Cardiovascular: denies: chest pain Endocrine: denies: unexplained weight loss Gastrointestinal: as per HPI Genitourinary: as per HPI Musculoskeletal: as per HPI Skin: denies: rash Neurological: denies: headache Hematological/Lymphatic: denies: easy bruising ED Past Medical Hx - Past Medical History Hx Hypertension: No Hx Congestive Heart Failure: No Hx Diabetes: No Hx Deep Vein Thrombosis: No Hx Renal Disease: No Hx Sickle Cell Disease: No Hx Seizures: No Hx Asthma: No Hx COPD: No Hx HIV: No - Surgical History Additional Surgical History: x 2 - Social History Smoking Status: Current Every Day Smoker Substance Use Type: Prescribed - Medications Home Medications: Home Medications Medication Instructions Recorded Confirmed Last Taken Type Cefuroxime Axetil [Ceftin] 500 mg PO Q12H #20 tablet 11/14/16 10/19/17 Unknown Rx HYDROcodone/APAP 5-325 [[place] 1 each PO Q6HR PRN #15 tablet 11/14/16 10/19/17 Unknown Rx 5/325] oxyCODONE /ACETAMINOPHEN [Percocet 1 tab PO Q6HR PRN #20 tablet 10/21/17 Unknown Rx 5/325] Ciprofloxacin HCl [Cipro] 500 mg PO BID #10 tablet 01/20/18 Unknown Rx Loperamide [Imodium] 2 mg PO Q2HR PRN #20 capsule 01/20/18 Unknown Rx Promethazine [Phenergan] 25 mg PO Q8HR PRN #20 tab 01/20/18 Unknown Rx Ibuprofen [Motrin 800 MG tab] 800 mg PO Q8HR PRN #20 tablet 08/07/21 Unknown Rx Lidocaine [Lidoderm] 1 each TP DAILY #30 adh..patch 08/07/21 Unknown Rx Metaxalone [Skelaxin] 800 mg PO TID #9 tablet 08/07/21 Unknown Rx ED Physical Exam - General Limitations: No Limitations, Other (Pulse ox noted and normal) General appearance: alert, in distress (Uncomfortable) - Head Head exam: Present: atraumatic, normocephalic - Eye Eye exam: Present: normal appearance, EOMI - ENT ENT exam: Present: normal orophraynx, normal external ear exam - Neck Neck exam: Present: normal inspection. Absent: meningismus - Respiratory Respiratory exam: Present: normal lung sounds bilaterally. Absent: respiratory distress - Cardiovascular Cardiovascular Exam: Present: regular rate, normal rhythm - GI/Abdominal GI/Abdominal exam: Present: soft. Absent: tenderness - Extremities Exam Extremities exam: Present: normal capillary refill - Back Exam Back exam: Present: paraspinal tenderness (Right lumbosacral area). Absent: CVA tenderness (R), CVA tenderness (L) - Neurological Exam Neurological exam: Present: alert, oriented X3, CN II-XII intact, normal gait, reflexes normal, other (Negative straight leg raise). Absent: motor sensory deficit - Psychiatric Psychiatric exam: Present: normal affect, normal mood - Skin Skin exam: Present: warm, dry ED Course Vital Signs 08/07/21 15:47 Temperature 98.5 F Pulse Rate 83 Respiratory 16 Rate Blood Pressure 121/73 O2 Sat by Pulse 99 Oximetry - Reevaluation(s) Reevaluation #1: 08/07/21 20:22 Labs are noted. Patient was discharged. ED Medical Decision Making - Lab Data Result diagrams: 08/07/21 18:35 08/07/21 18:35 - Medical Decision Making Patient presents with nontraumatic back pain in the right lumbar area. She does have some radicular component. She may benefit from outpatient MRI. There was no evidence of hematuria or urinary tract infection. She does not have pre gnancy so she is got no evidence of ectopic. Patient does not appear to have intractable pain. There is no abdominal tenderness to suggest referred pain. Critical Care Time: No Critical care attestation.: If time is entered above; I have spent that time in minutes in the direct care of this critically ill patient, excluding procedure time. ED Disposition Clinical Impression: Right lumbar pain Disposition: 01 HOME / SELF CARE / HOMELESS Is pt being admited?: No Condition: Stable Instructions: Radicular Pain, Pain Without a Known Cause Additional Instructions: Limit lifting. Apply ice. Try heat. Drink plenty water. Return for problems. Follow-up with your regular doctor for recheck and further management. Prescriptions: Lidocaine [Lidoderm] 1 each TP DAILY #30 adh..patch Ibuprofen [Motrin 800 MG tab] 800 mg PO Q8HR PRN #20 tablet PRN Reason: Pain, Mild (1-3) Metaxalone [Skelaxin] 800 mg PO TID #9 tablet Referrals: PRIMARY CARE, [Primary Care Provider] - 3-5 Days
[2021-08-07 20:34] VITALS: BP 105/63
--- NOTE | 2021-08-07 20:51 | Cat Scan Report ---
CT ABDOMEN AND PELVIS WITH CONTRAST INDICATION / CLINICAL INFORMATION: R flank, RUQ and RLQ pain. TECHNIQUE: Axial CT images were obtained through the abdomen and pelvis after 100 cc of Omnipaque [address] scans at this location are performed using CT dose reduction for ALARA by means of automated exposure control. COMPARISON: None available. FINDINGS: LOWER CHEST: No significant abnormality. LIVER: No significant abnormality. GALLBLADDER: No significant abnormality. BILE DUCTS: No significant abnormality. PANCREAS: No significant abnormality. SPLEEN: No significant abnormality. ADRENALS: No significant abnormality. RIGHT KIDNEY / URETER: There is a 9 mm hypodensity in the lower pole which is too small to characteri ze accurately. This likely represents a tiny cyst. There is no hydronephrosis. No renal or ureteral c alculi are seen. LEFT KIDNEY / URETER: No significant abnormality. STOMACH / SMALL BOWEL: There are some fluid-filled loops of small bowel which are normal in caliber. No transition point is seen. There is no obstruction. COLON: There is a moderate to large amount of stool in the colon APPENDIX: No significant abnormality. PERITONEUM: No free fluid. No free air. No fluid collection. LYMPH NODES: No significant adenopathy. AORTA / ARTERIES: No significant abnormality. IVC / VEINS: No significant abnormality. URINARY BLADDER: No significant abnormality. REPRODUCTIVE ORGANS: No significant abnormality. ADDITIONAL FINDINGS: None. SKELETAL SYSTEM: No acute abnormality. IMPRESSION: 1. There is no obstruction, inflammation, or free air. There are no abnormal fluid collections. 2. There is moderate to large amount stool in the colon raising possibility of constipation. 3. There are some fluid-filled loops of small bowel which are normal in caliber. This is nonspecific but could indicate an enteritis. Signer Name: Ryan Hua MD Signed: 08/07/2021 8:46 PM Workstation Name: [id number]
== END 2021-08-07 20:00 | disposition home or self-care (01) ==
LOC: ED 15:40
DX: M54.41 Lumbago with sciatica, right side (principal); F17.200 Nicotine dependence, unspecified, uncomplicated; R10.31 Right lower quadrant pain
CPT/HCPCS: 36415; 74177; 80053; 81001; 83690; 84703; 85025; 96374; 96375; 99284; J2270; J2405; Q9967